=== PATIENT | female | born 1980 | race Caucasian/White ===

== ENCOUNTER 2023-05-01 10:34 | Emergency (ER) | payer SELFPAY ==
[~2023-05-01] VITALS: Ht 162.6 cm; Wt 81.7 kg
[2023-05-01 10:59] VITALS: BP 141/122
== END 2023-05-01 14:25 | disposition home or self-care (01) ==
LOC: ER 10:34
DX: I82.812 Embolism and thrombosis of superficial veins of left lower extremity (principal); Z86.718 Personal history of other venous thrombosis and embolism; Z88.0 Allergy status to penicillin
CPT/HCPCS: 93971; 99283-25

== ENCOUNTER 2023-09-14 14:33 | Emergency (ER) | payer OTHER ==
[~2023-09-14] VITALS: Ht 162.6 cm; Wt 83.9 kg
[2023-09-14 14:55] VITALS: BP 146/98
[2023-09-14] MEDS ORDERED: Ketorolac Tromethamine 30mg Vial IM ONE (15:35)
[2023-09-14] MEDS ORDERED: Acetaminophen 500 MG Tab PO ONE (15:35)
== END 2023-09-14 17:00 | disposition home or self-care (01) ==
LOC: ER 14:33
DX: F07.81 Postconcussional syndrome (principal); Z91.410 Personal history of adult physical and sexual abuse; Z87.828 Personal history of other (healed) physical injury and trauma; Z88.0 Allergy status to penicillin
CPT/HCPCS: 93971; 96372; 99284-25; A9270; J1885